=== PATIENT | female | born 1995 | race African-American/Black ===

== ENCOUNTER 2022-04-17 21:13 | Emergency (ER) | payer BC, MEDICAID ==
[~2022-04-17] VITALS: Ht 167.6 cm; Wt 62.6 kg
[~2022-04-17 21:13] MED LIST: ACET-2708 MT
[2022-04-17] MEDS ORDERED: ACETAMINOPHEN 500MG TABLET PO ONE (22:45)
[2022-04-17] MEDS ORDERED: TOPUD MT (23:00)
[2022-04-17 23:31] LABS: BASOPHILS % 0.4 % (0.0-2.0); HEMATOCRIT. 40.8 % (36.0-48.0); HEMOGLOBIN. 13.4 g/dL (12.0-16.0); LYMPHOCYTES % 24.9 % (20.0-50.0); MEAN CORPUSCULAR HEMOGLOBIN 27.7 pg (28.0-32.0); MEAN CORPUSCULAR VOLUME 84.5 fL (81.0-99.0); MEAN PLATELET VOLUME 7.3 fl (7.4-10.4); MONOCYTES % 6.6 % (2.0-8.0); NEUTROPHILS % 67.1 % (40.0-76.0); PLATELET 256 x1000/uL (130-400); RED BLOOD CELL COUNT 4.83 mill/uL (4.2-5.4)
[2022-04-17 23:39] LABS: CHLORIDE 104 mEq/L (98-107)
[2022-04-17 23:56] LABS: CLARITY URINE CLEAR (CLEAR); COLOR URINE YELLOW (YELLOW); KETONES URINE NEGATIVE (NEGATIVE); LEUKOCYTE ESTERASE URINE NEGATIVE (NEGATIVE); NITRITE URINE NEGATIVE (NEGATIVE); OCCULT BLOOD URINE NEGATIVE (NEGATIVE); PROTEIN URINE NEGATIVE (NEGATIVE); SPECIFIC GRAVITY URINE 1.011 (1.005-1.030); UROBILINOGEN URINE 0.2 E.U./dL (0.2-1.0)
[2022-04-18 00:04] LABS: B-HCG QUANTITATIVE 63212 mIU/mL (<3)
[2022-04-18 02:32] VITALS: BP 118/77
== END 2022-04-18 03:19 | disposition home or self-care (01) ==
LOC: ER 21:13
DX: O20.0 Threatened abortion (principal); O26.891 Other specified pregnancy related conditions, first trimester; R10.2 Pelvic and perineal pain; Z3A.08 8 weeks gestation of pregnancy; Z87.19 Personal history of other diseases of the digestive system
CPT/HCPCS: 36415; 76801; 80053; 81003; 81025; 84702; 85025; 99284

== ENCOUNTER 2022-07-18 15:31 | Emergency (ER) | payer BC, MEDICAID ==
[~2022-07-18] VITALS: Ht 167.6 cm; Wt 59.0 kg
[~2022-07-18 15:31] MED LIST changes: +TOPUD MT
[2022-07-18 15:34] VITALS: BP 130/75
[2022-07-18 20:58] LABS: CLARITY URINE CLEAR (CLEAR); COLOR URINE YELLOW (YELLOW); KETONES URINE NEGATIVE (NEGATIVE); LEUKOCYTE ESTERASE URINE NEGATIVE (NEGATIVE); NITRITE URINE NEGATIVE (NEGATIVE); OCCULT BLOOD URINE NEGATIVE (NEGATIVE); PROTEIN URINE NEGATIVE (NEGATIVE); SPECIFIC GRAVITY URINE 1.019 (1.005-1.030); UROBILINOGEN URINE 0.2 E.U./dL (0.2-1.0)
[2022-07-18 21:01] LABS: CHLORIDE 110 mEq/L (98-107)
[2022-07-18 21:08] LABS: BASOPHILS % 0.4 % (0.0-2.0); HEMATOCRIT. 39.9 % (36.0-48.0); HEMOGLOBIN. 12.9 g/dL (12.0-16.0); LYMPHOCYTES % 23.8 % (20.0-50.0); MEAN CORPUSCULAR HEMOGLOBIN 27.3 pg (28.0-32.0); MEAN CORPUSCULAR VOLUME 84.5 fL (81.0-99.0); MEAN PLATELET VOLUME 7.4 fl (7.4-10.4); MONOCYTES % 6.4 % (2.0-8.0); NEUTROPHILS % 68.4 % (40.0-76.0); PLATELET 280 x1000/uL (130-400); RED BLOOD CELL COUNT 4.72 mill/uL (4.2-5.4)
[2022-07-18 23:04] LABS: B-HCG QUANTITATIVE < 3 mIU/mL (<3)
== END 2022-07-18 23:19 | disposition home or self-care (01) ==
LOC: ER 15:31
DX: N83.201 Unspecified ovarian cyst, right side (principal)
CPT/HCPCS: 36415; 76830; 76856; 80053; 81003; 81025; 84702; 85025; 86850; 86900; 99284